=== PATIENT | male | born 1950 | race Caucasian/White ===

== ENCOUNTER 2025-07-17 07:56 | Day surgery (SDC) | payer OTHER ==
[2025-07-12 13:03] LABS: Absolute Lymphocytes (CBC) 1.7 K/uL (0.7-4.9); Hematocrit 40.3 % (39.6-49.0); Hemoglobin 12.9 g/dL (13.6-17.9); MCH 28.9 pg (27.0-35.0); MCHC 32.0 g/dL (32.0-36.0); MCV 90.3 fL (80-100); MPV 7.9 fL (7.6-11.3); Nucleated RBC Absolute Count 0.0 (0-0); Nucleated Red Blood Cells % 0.0 % (0-0); RBC Red Blood Cell Count 4.46 M/uL (4.33-5.43); White Blood Count 7.00 thou/uL (4.3-10.9)
[2025-07-12 13:14] LABS: PT Prothrombin Time 13.3 SECONDS (10-13.0); PTT, Activated Partial Thromb 33.2 SECONDS (27.2-37.4); Protime INR 1.18
[2025-07-12 13:17] LABS: Anion Gap 13.3 mEq/L (5.0-15.0); BUN Blood Urea Nitrogen 18.0 mg/dL (7-18); Glucose Level 182.0 mg/dL (74-106); Potassium 4.3 mEq/L (3.5-5.1)
[2025-07-17] MEDS: NA CHLORIDE 0.9% 1,000 ML ONE (08:40)
[2025-07-17] MEDS ORDERED: LIDOCAINE 1% MPF 5 ML VIAL ONE (09:42)
[2025-07-17 10:52] VITALS: O2SAT 99
[2025-07-17 10:53] VITALS: TEMP 98
[2025-07-17 12:51] VITALS: BP 111/71
== END 2025-07-17 11:50 | disposition home or self-care (01) ==
LOC: OR 07:56
PROVIDERS: ATTEND Internal Medicine Gastroenterology
PROC: 0DB78ZX Excision of Stomach, Pylorus, Via Natural or Artificial Opening Endoscopic, Diagnostic (ICD-10-PCS; 2025-07-17)
PROC: 0DB68ZX Excision of Stomach, Via Natural or Artificial Opening Endoscopic, Diagnostic (ICD-10-PCS; 2025-07-17)
PROC: 0DB38ZX Excision of Lower Esophagus, Via Natural or Artificial Opening Endoscopic, Diagnostic (ICD-10-PCS; principal; 2025-07-17 09:15)
DX: K22.70 Barrett's esophagus without dysplasia (principal); D50.9 Iron deficiency anemia, unspecified; R10.13 Epigastric pain; K29.50 Unspecified chronic gastritis without bleeding
CPT/HCPCS: 85025; 80048; 36415; 88312; 85610; 82947; 88305; 85730; 43239; J2704; J2003; J7030